=== PATIENT | female | born 1955 | race Two or more races ===

== ENCOUNTER 2025-04-22 21:19 | Inpatient (IN) | payer MEDICARE, OTHER ==
[~2025-04-22] VITALS: Ht 152.4 cm; Wt 70.3 kg
[2025-04-22 23:08] LABS: APPEARANCE,URINE CLEAR (CLEAR); BLOOD, URINE TRACE-INTA Ery/uL (NEGATIVE); LEUKOCYTE ESTERASE ,URINE NEGATIVE (NEGATIVE); NITRITE, URINE NEGATIVE (NEGATIVE); UGLUCOSE NEGATIVE (NEGATIVE)
[2025-04-22 23:13] LABS: ADD URINE CULTURE NO; SQUAMOUS EPITHELIAL CELL,UR 0-2 /HPF (None Seen)
[2025-04-22 23:14] LABS: CALCIUM, SERUM 9.0 mg/dL (8.5-10.1); CREATININE 0.9 mg/dL (0.6-1.3); SODIUM SERUM 130.0 mmol/L (136-145); UREA NITROGEN, BLOOD 21.0 mg/dL (7-18)
[2025-04-22 23:25] LABS: ASPARTATE AMINOTRANSFERASE 20.0 U/L (15-37); NT-PRO BNP 28.0 pg/mL (0-125); TOTAL PROTEIN, SERUM 7.7 g/dL (6.4-8.2)
[2025-04-22 23:26] LABS: PLATELET COUNT (AUTO) 306 K/uL (150-450); RED BLOOD CELL COUNT(AUTO) 4.37 MIL/uL (4.0-5.2); RED CELL DISTRIBUTION WIDTH 14.5 % (11.5-15.0); WHITE BLOOD COUNT (AUTO) 10.9 K/uL (4.3-11.0)
[2025-04-22 23:41] LABS: LACTIC ACID 1.2 mmol/L (0.4-2.0)
[2025-04-23] VITALS (7 sets, daily range): BP systolic 123–145; BP diastolic 61–85; TEMP 97.5–98.1; O2SAT 96–99
[2025-04-23] MEDS ORDERED: MECLIZINE HCL 25 MG TABLET ONE (04:47)
[2025-04-23] MEDS ORDERED: ONDANSETRON HCL/PF 4 MG/2 ML VIAL ONE (04:47)
[2025-04-23] MEDS: MECLIZINE HCL 25 MG TABLET PO STA (04:52)
[2025-04-23] MEDS: ONDANSETRON HCL/PF 4 MG/2 ML VIAL IV STA (04:54)
[2025-04-23] MEDS ORDERED: MECLIZINE HCL 25 MG TABLET PO PRN (05:30)
[2025-04-23] MEDS ORDERED: ONDANSETRON HCL/PF 4 MG/2 ML VIAL IVP PRN (05:30)
[2025-04-23] MEDS ORDERED: ACETAMINOPHEN 325 MG TABLET PO PRN (05:30)
[2025-04-23] MEDS ORDERED: MAGNESIUM HYDROXIDE 30 ML UDC PO PRN (05:30)
[2025-04-23] MEDS ORDERED: MAG HYDROX/AL HYDROX/SIMETH 30 ML UDC PO PRN (05:30)
[2025-04-23] MEDS: IV NS 0.9% 1,000 ML IV PRN (06:41)
[2025-04-23] MEDS: PANTOPRAZOLE 40 MG TABLET.DR PO SCH (07:50)
[2025-04-23] MEDS ORDERED: ALBU18HF2 IH (09:42)
[2025-04-23] MEDS ORDERED: AMLO-213 PO (09:42)
[2025-04-23] MEDS ORDERED: PANT40TA49 PO (09:42)
[2025-04-23] MEDS ORDERED: ATOR10TA PO (09:42)
[2025-04-23] MEDS ORDERED: DIPH25TA23 PO (09:42)
[2025-04-23] MEDS ORDERED: LEVO25TA49 PO (09:42)
[2025-04-23] MEDS ORDERED: MELO-105 PO (09:42)
[2025-04-23] MEDS ORDERED: TELM40TA8 PO (09:42)
[2025-04-23] MEDS ORDERED: METF-440 PO (09:42)
[2025-04-23 10:02] LABS: PLATELET COUNT (AUTO) 280 K/uL (150-450); RED BLOOD CELL COUNT(AUTO) 4.02 MIL/uL (4.0-5.2); RED CELL DISTRIBUTION WIDTH 14.2 % (11.5-15.0); WHITE BLOOD COUNT (AUTO) 7.1 K/uL (4.3-11.0)
[2025-04-23 10:55] LABS: CALCIUM, SERUM 8.7 mg/dL (8.5-10.1); CREATININE 0.8 mg/dL (0.6-1.3); PHOSPHORUS 3.1 mg/dL (2.5-4.9); SODIUM SERUM 135 mmol/L (136-145); UREA NITROGEN, BLOOD 15 mg/dL (7-18)
[2025-04-23 11:03] LABS: LDL 55 mg/dL (0-99)
[2025-04-23] MEDS: METFORMIN 500 MG TABLET PO SCH (17:34)
[2025-04-23] MEDS: MELOXICAM 7.5 MG TABLET PO SCH (17:34)
[2025-04-23] MEDS: ATORVASTATIN 10 MG TABLET PO SCH (17:34)
[2025-04-23] MEDS: AMLODIPINE BESYLATE 10 MG TABLET PO SCH (17:35)
[2025-04-24] VITALS (7 sets, daily range): BP systolic 131–169; BP diastolic 60–85; TEMP 97.9–98.6; O2SAT 96–99
[2025-04-24 07:11] LABS: CALCIUM, SERUM 8.8 mg/dL (8.5-10.1); CREATININE 0.7 mg/dL (0.6-1.3); PHOSPHORUS 3.9 mg/dL (2.5-4.9); PLATELET COUNT (AUTO) 285 K/uL (150-450); RED BLOOD CELL COUNT(AUTO) 3.96 MIL/uL (4.0-5.2); RED CELL DISTRIBUTION WIDTH 14.2 % (11.5-15.0); SODIUM SERUM 141.0 mmol/L (136-145); UREA NITROGEN, BLOOD 14.0 mg/dL (7-18); WHITE BLOOD COUNT (AUTO) 7.6 K/uL (4.3-11.0)
[2025-04-24] MEDS: METHIMAZOLE (5MG) 5 MG TABLET PO SCH (08:28)
[2025-04-24] MEDS: LOSARTAN POTASSIUM 50 MG TABLET PO SCH (08:28)
[2025-04-24] MEDS: PANTOPRAZOLE 40 MG TABLET.DR PO SCH (08:29)
[2025-04-25] VITALS: BP 139/66; TEMP 98.2; O2SAT 96
[2025-04-25 04:00] VITALS: BP_SYST 144; BP_SYST 150; BP_SYST 156; BP_DIAS 70; BP_DIAS 79; BP_DIAS 81; TEMP 97.7; O2SAT 99
[2025-04-25 08:00] VITALS: BP 154/75; TEMP 97.9; O2SAT 95
[2025-04-25] MEDS ORDERED: METH5TAB6 PO (10:15)
[2025-04-25 16:00] VITALS: BP 141/73; TEMP 97.7; O2SAT 99
[2025-04-25 17:00] VITALS: BP 141/73
== END 2025-04-25 21:28 | disposition home or self-care (01) | DRG 644 ==
LOC: ER 21:24 → TELE 04-23 04:16
PROVIDERS: ADMIT Internal Medicine; ATTEND Internal Medicine
DX: E05.00 Thyrotoxicosis with diffuse goiter without thyrotoxic crisis or storm (principal); E87.1 Hypo-osmolality and hyponatremia; E11.9 Type 2 diabetes mellitus without complications; J45.909 Unspecified asthma, uncomplicated; E86.1 Hypovolemia; I10 Essential (primary) hypertension; J44.9 Chronic obstructive pulmonary disease, unspecified; Z88.8 Allergy status to other drugs, medicaments and biological substances; Z91.018 Allergy to other foods; Z79.890 Hormone replacement therapy; Z79.51 Long term (current) use of inhaled steroids; Z79.899 Other long term (current) drug therapy; Z79.84 Long term (current) use of oral hypoglycemic drugs; D64.9 Anemia, unspecified
CPT/HCPCS: 36415; 70450-TC; 71045-TC; 76536-TC; 80048-TC; 80053-TC; 80061-TC; 81001; 82962-TC; 83605-TC; 83690-TC; 83735-TC; 83880; 84100-TC; 84439-TC; 84443-TC; 84484-TC; 85025-TC; 87040-TC; 97116-TC; A4223; G0378; J2405; J7030; J8597